=== PATIENT | female | born 1955 | race Two or more races ===

== ENCOUNTER 2025-08-28 12:53 | Emergency (ER) | payer MEDICARE, OTHER ==
[~2025-08-28] VITALS: Ht 152.4 cm; Wt 72.6 kg
[2025-08-28 13:39] LABS: PLATELET COUNT (AUTO) 154 K/uL (150-450); RED BLOOD CELL COUNT(AUTO) 4.21 MIL/uL (4.0-5.2); RED CELL DISTRIBUTION WIDTH 15.3 % (11.5-15.0); WHITE BLOOD COUNT (AUTO) 11.1 K/uL (4.3-11.0)
[2025-08-28 13:40] LABS: CALCIUM, SERUM 8.5 mg/dL (8.5-10.1); CREATININE 0.7 mg/dL (0.6-1.3); SODIUM SERUM 138.0 mmol/L (136-145); UREA NITROGEN, BLOOD 14.0 mg/dL (7-18)
[2025-08-28 13:46] LABS: ASPARTATE AMINOTRANSFERASE 15.0 U/L (15-37); TOTAL PROTEIN, SERUM 6.9 g/dL (6.4-8.2)
[2025-08-28 13:51] LABS: APPEARANCE,URINE CLEAR (CLEAR); BLOOD, URINE 3+ Ery/uL (NEGATIVE); LEUKOCYTE ESTERASE ,URINE 3+ (NEGATIVE); NITRITE, URINE POSITIVE (NEGATIVE); UGLUCOSE NEGATIVE (NEGATIVE)
[2025-08-28 14:03] LABS: ADD URINE CULTURE YES; SQUAMOUS EPITHELIAL CELL,UR Rare /HPF (None Seen)
[2025-08-28] MEDS ORDERED: PHEN-704 PO (14:29)
[2025-08-28] MEDS ORDERED: CEPH-570 PO (14:29)
[2025-08-28] MEDS ORDERED: IBUP-1955 PO (14:29)
[2025-08-28] MEDS ORDERED: CEFTRIAXONE 1GM BAG (ER ONLY) 50 ML IV ONE (14:36)
[2025-08-28] MEDS: IV NS 0.9% 1,000 ML BAG IV ONE (14:48)
[2025-08-28] MEDS: CEFTRIAXONE 1 G in IV D5W 50 ML IV ONE (14:49)
[2025-08-28] MEDS: KETOROLAC TROMETHAMINE 15 MG/ML VIAL IV ONE (14:49)
[2025-08-28 15:31] VITALS: BP 150/78; TEMP 98.7; O2SAT 99
== END 2025-08-28 15:32 | disposition home or self-care (01) ==
LOC: ER 12:59
DX: N39.0 Urinary tract infection, site not specified (principal)
CPT/HCPCS: 99284; 96365; 96375; 85025; 80048; 87077; 87086; 83690; 80076; 87186; 81001; 36415; J1885; J7030; J0696

== ENCOUNTER 2025-09-11 15:22 | Emergency (ER) | payer MEDICARE, OTHER ==
[~2025-09-11] VITALS: Ht 165.1 cm; Wt 62.6 kg
[~2025-09-11 15:22] MED LIST: CEPH-570 PO; IBUP-1955 PO; PHEN-704 PO
[2025-09-11 15:54] VITALS: TEMP 97.4
[2025-09-11 16:46] LABS: APPEARANCE,URINE CLEAR (CLEAR); BLOOD, URINE Trace-intact Ery/uL (NEGATIVE); LEUKOCYTE ESTERASE ,URINE Small (NEGATIVE); UGLUCOSE 100 MG/DL mg/dL (NEGATIVE)
[2025-09-11 16:48] LABS: NITRITE, URINE POSITIVE (NEGATIVE)
[2025-09-11 16:49] LABS: ADD URINE CULTURE YES; SQUAMOUS EPITHELIAL CELL,UR Moderate /HPF (None Seen); URINE AMORPHOUS PHOSPHATES Few /HPF (None Seen)
[2025-09-11 17:33] LABS: PLATELET COUNT (AUTO) 200 K/uL (150-450); RED BLOOD CELL COUNT(AUTO) 4.37 MIL/uL (4.0-5.2); RED CELL DISTRIBUTION WIDTH 13.7 % (11.5-15.0); WHITE BLOOD COUNT (AUTO) 6.9 K/uL (4.3-11.0)
[2025-09-11 17:39] LABS: CALCIUM, SERUM 8.6 mg/dL (8.5-10.1); CREATININE 0.6 mg/dL (0.6-1.3); SODIUM SERUM 136.0 mmol/L (136-145); UREA NITROGEN, BLOOD 11.0 mg/dL (7-18)
[2025-09-11] MEDS ORDERED: LEVO750T46 PO (17:56)
[2025-09-11] MEDS ORDERED: IBUP-1955 PO (17:56)
[2025-09-11 18:16] VITALS: BP 128/75; O2SAT 97
== END 2025-09-11 18:16 | disposition home or self-care (01) ==
LOC: ER 15:45
DX: N39.0 Urinary tract infection, site not specified (principal)
CPT/HCPCS: 36415; 80048-TC; 81001; 85025-TC; 87086-TC